=== PATIENT | male | born 1945 | race Caucasian/White ===

== ENCOUNTER 2016-07-02 12:25 | Day surgery (SDC) | payer MEDICARE ==
[~2016-07-02] VITALS: Ht 177.8 cm; Wt 93.4 kg
[~2016-07-02 12:25] MED LIST: ALLO300T2 PO; CHOL3000 PO; COLC0.6T55 PO; Sodium Chloride LOK Flush 10 mL Syringe IV PRN; fentaNYL-PF 50 mCg/mL 2 mL Inj IVPUSH PRN
[2016-07-02 13:20] VITALS: BP 114/60; PULSE 57; RESP 14; O2SAT 97
[2016-07-02] MEDS: 0.9% Sodium Chloride 1,000 ML IV SCH ×2 (14:33→14:44)
--- NOTE | 2016-07-02 14:44 | PCM.ENDCOL ---
Colonoscopy Date of Service: Jul 02, 2016 Physician Francesco Barrow MD Pre Procedure Diagnosis: Screening Post Procedure Dx & Findings: Polyp hemorrhoids diverticuli colitis Procedure Colonoscopy PROCEDURE IN DETAIL: Prep adequate Withdrawal time 10 minutes After unremarkable rectal examination the Olympus video colonoscope was inserted patient's anal canal and was advanced to cecum. Landmarks were identified including the ileocecal valve and appendiceal orifice. Scope further events to the terminal ileum. Advanced 10 cm. Normal villous structures without ulcer or mass erosion noted. Scope was withdrawn systematically. Visualized colonic mucosa showed healthy shiny mucosa with normal healthy-appearing vasculature. In the ascending colon, there was a segment of redness inflammation, superficial ulceration, edema noted. Multiple biopsies obtained. In the sigmoid descending colon junction, there were two 1 mm polyps which were removed completely using cold forceps. In the sigmoid colon, there were several small diverticuli. In the rectum retroflexion was done which showed hemorrhoids. Anal canal was inspected carefully on the way out and hemorrhoids noted. Impression Ascending colitis status post biopsy Polyps 2 status post complete removal Diverticuli Hemorrhoids Recommendation Repeat colonoscopy 5 years Diverticular diet Follow up in GI clinic one month. Presedation Assessment Risks and Benefits Informed consent was obtained from the patient after all risks and benefits including but not limited to drug reaction, infection, pain, bleeding, perforation, as well as alternatives were discussed. Patient monitoring Continuous pulse oximetry, cardiac monitoring, blood pressure monitoring, IV access, and oxygen at 2L per nasal cannula. Periprocedural Fentanyl: Fentanyl 75mcg Incrementally Midazolam: Midazolam 3mg Incrementally Complications There were no periprocedural complications identified. Post Procedure Plan Post Procedure Recommendations 1. Restrict activities today. 2. Resume normal activities in the morning. 3. Resume medications. 4. Patient informed of normal post procedure side effects as bloating, drowsiness, blood streaking in the stool. 5. average risk CRCS. If colon polyps come back as: -Hyperplastic- can repeat colonoscopy in 10 years -Tubular adenoma- repeat colonoscopy in 5 years -Tubulovillous/villous adenoma- repeat colonoscopy in 3 years -If any dysplasia- return to clinic as soon as possible 6. Please don't hesitate to call me with any questions. Francesco Barrow MD Jul 02, 2016 14:44
[2016-07-02 15:00] VITALS: BP 112/62; PULSE 55; RESP 16; O2SAT 98
[2016-07-02 15:08] VITALS: BP 110/60; PULSE 55; RESP 14; O2SAT 97
--- NOTE | 2016-07-04 18:35 | PATH ---
SURGICAL PATHOLOGY Attending Physician:Francesco Barrow M.D. CASE STATUS: Signed Out PATIENT NAME: VICTOR M SALCEDO PID: [id number] : 1945 DATE COLLECTED:07/02/2016 00:00 SPECIMEN: 1: Colon, Biopsy 2: Colon, Biopsy CLINICAL HISTORY: SCREENING, ?COLITIS/COLON POLYP 1). ASCENDING COLON BIOPSIES 2). DESCENDING COLON POLYP FINAL DIAGNOSIS: 1. Ascending Colon, Biopsies: Colonic mucosa with patchy ischemic type changes. Please see comment. 2. Descending Colon, Polyp, Biopsy: Portion of tubular adenoma x1; negative for high-grade dysplasia. Superficial portion of colorectal mucosa x 1 with prominent lymphoid aggregate and otherwise no significant histomorphologic abnormality. ICD10: K52.89 NOTE: 1: The differential diagnosis includes true vascular ischemia, infection (with organisms such as enterohemorrhagic E.coli, C. Difficile, etc), and changes associated with trauma / prolapse. GROSS DESCRIPTION: The specimen is received in two formalin filled containers labeled with the patient's name. 1). The specimen is sublabeled "ascending colon" and consists of 4 portions of tissue which aggregate to 0.3 x 0.3 x 0.2 CM. The specimen is entirely submitted in cassette 1A. 2). The specimen is sublabeled "descending colon polyp" and consists of 2 portions of tissue which aggregate to 0.3 x 0.3 x 0.3 CM. The specimen is entirely submitted in cassette 2A. 07/03/2016 [facility] ICD-9 CODES: CPT CODES: 1: 46903 2: 95375 Electronically Signed Out Tejal Rosen MD [facility] [address], [place] [address] Technical component performed at [facility], [address] [place] [address] Ave[address], [place], [address]
== END 2016-07-02 23:59 | disposition home or self-care (01) ==
LOC: END 12:25
PROVIDERS: ATTEND Internal Medicine
DX: Z12.11 Encounter for screening for malignant neoplasm of colon (principal); D12.4 Benign neoplasm of descending colon; K63.5 Polyp of colon; K52.9 Noninfective gastroenteritis and colitis, unspecified; K57.30 Diverticulosis of large intestine without perforation or abscess without bleeding; K64.8 Other hemorrhoids; E78.2 Mixed hyperlipidemia; E53.9 Vitamin B deficiency, unspecified; K21.9 Gastro-esophageal reflux disease without esophagitis; F34.1 Dysthymic disorder; M10.9 Gout, unspecified; Z86.718 Personal history of other venous thrombosis and embolism
CPT/HCPCS: 45380; 88305; 99153; G0500; J7030